=== PATIENT | female | born 1995 | race Caucasian/White ===

== ENCOUNTER 2023-01-22 23:00 | Inpatient (IN) | payer OTHER ==
[2023-01-22] MEDS ORDERED: ZOLPIDEM TARTRATE 5 MG TABLET PO ONE (23:30)
[2023-01-22] MEDS: ELECTROLYTE-148 SOLN 1,000 ML IV SCH (23:30)
[2023-01-22] MEDS ORDERED: PROMETHAZINE HCL 25 MG/1 ML VIAL IVPB ONE (23:30)
[2023-01-22] MEDS ORDERED: BUTORPHANOL TARTRATE 2 MG/ML VIAL IVPB ONE (23:30)
[2023-01-23 00:15] LABS: EOS % 0.5 % (0-4.5); HEMATOCRIT 30.2 % (32.4-45.2); HEMOGLOBIN 10.2 GM/dL (10.7-15.3); LYMPH % 13.9 % (8-40); MCH 27.4 pg (25.7-33.7); MCHC 33.9 g/dl (32.0-36.0); MEAN CELL VOLUME 80.7 fl (80-96); MEAN PLT VOLUME 7.1 fl (7.5-11.1); MONO % 8.4 % (3.8-10.2); NEUT % 77.2 % (42.8-82.8); PLATELET COUNT 406 10^3/uL (134-434); RBC 3.75 M/mm3 (3.60-5.2); RDW 13.9 % (11.6-15.6); WHITE BLOOD COUNT 12.5 K/mm3 (4.0-10.0)
[2023-01-23 00:30] LABS: ACTIVATED PTT 26.7 SECONDS (25.2-36.5); INR 1.05 (0.83-1.09); PROTHROMBIN TIME (PATIENT) 12.2 SEC (9.7-13.0)
[2023-01-23 00:37] LABS: BLOOD UREA NITROGEN 7.2 mg/dL (7-18); CALCIUM 8.9 mg/dL (8.5-10.1)
[2023-01-23 00:41] VITALS: BMI 27.8
[2023-01-23 00:41] LABS: CREATININE 0.5 mg/dL (0.55-1.3)
[2023-01-23] MEDS ORDERED: BUTORPHANOL TARTRATE 2 MG/ML VIAL ONE (01:27)
[2023-01-23] MEDS ORDERED: PROMETHAZINE HCL 25 MG/1 ML VIAL ONE (01:27)
[2023-01-23 01:32] LABS: HIV INTERPRETATION NEGATIVE (NEGATIVE)
[2023-01-23] MEDS ORDERED: FENTANYL/BUPIVACAINE/NS/PF - PCEA - 50 ML DISP.SYRIN EP ONE ×2 (07:27→12:58)
[2023-01-23] MEDS: ELECTROLYTE-148 SOLN 1,000 ML IV SCH (07:35)
[2023-01-23] MEDS ORDERED: NALOXONE HCL 0.4 MG/ML VIAL IVPUSH PRN (07:48)
[2023-01-23] MEDS ORDERED: BUPIVACAINE HCL/PF 0.25% (2.5MG/ML) 10 ML VIAL ONE (07:50)
[2023-01-23] MEDS: FENTANYL/BUPIVACAINE/NS/PF - PCEA - 50 ML DISP.SYRIN EP SCH ×2 (08:10→13:01)
[2023-01-23] MEDS ORDERED: OXYTOCIN 30 UNITS in 0.9% NS 30 UNIT/500 ML INFUS.BAG IVPB ONE (08:52)
[2023-01-23] MEDS ORDERED: OXYTOCIN 30 UNITS in 0.9% NS 30 UNIT/500 ML INFUS.BAG IVPB SCH (09:15)
[2023-01-23] MEDS ORDERED: ELECTROLYTE-148 SOLN 1,000 ML IV SCH (09:15)
[2023-01-23] MEDS ORDERED: OXYTOCIN 20 UNITS in 0.9% NS 20 UNIT/1,000 ML INFUS.BAG IV ONE (15:55)
[2023-01-23] MEDS ORDERED: BISACODYL 10 MG SUPP.RECT RC PRN (18:03)
[2023-01-23] MEDS ORDERED: BENZOCAINE 28 GM HEMORRHOIDAL OINTMENT TP PRN (18:03)
[2023-01-23] MEDS ORDERED: ACETAMINOPHEN 325 MG TABLET (FP) PO PRN (18:03)
[2023-01-23] MEDS ORDERED: WITCH HAZEL 50% (TUCKS) 40 PAD/JAR PAD TP PRN (18:03)
[2023-01-23] MEDS ORDERED: METHYLERGONOVINE MALEATE 0.2 MG/1 ML AMP IM PRN (18:03)
[2023-01-23] MEDS ORDERED: BENZOCAINE 20% 57 GM BOTTLE TP PRN (18:03)
[2023-01-23] MEDS ORDERED: OXYTOCIN 20 UNITS in 0.9% NS 20 UNIT/1,000 ML INFUS.BAG IV SCH (18:15)
[2023-01-23] MEDS ORDERED: IBUPROFEN 600 MG TABLET (FP) PO ONE (19:39)
[2023-01-23] MEDS: IBUPROFEN 600 MG TABLET (FP) PO PRN (19:51)
[2023-01-24] MEDS: IBUPROFEN 600 MG TABLET (FP) PO PRN ×3 (06:00→16:34)
[2023-01-24 07:10] LABS: BASO % 1.6 % (0-2.0); EOS % 0.7 % (0-4.5); HEMATOCRIT 27.8 % (32.4-45.2); HEMOGLOBIN 9.8 GM/dL (10.7-15.3); MCH 28.4 pg (25.7-33.7); MCHC 35.1 g/dl (32.0-36.0); MEAN CELL VOLUME 80.8 fl (80-96); MEAN PLT VOLUME 7.6 fl (7.5-11.1); MONO % 6.6 % (3.8-10.2); NEUT % 78.1 % (42.8-82.8); PLATELET COUNT 329 10^3/uL (134-434); RBC 3.44 M/mm3 (3.60-5.2); WHITE BLOOD COUNT 12.9 K/mm3 (4.0-10.0)
[2023-01-24] MEDS: PRENATAL VITAMINS W/ FOLIC ACID TABLET (FP) PO SCH (09:13)
[2023-01-24] MEDS ORDERED: SENNOSIDES/DOCUSATE COMBO (SENNA PLUS) TABLET (UD) PO PRN (22:00)
[2023-01-24 22:14] VITALS: PULSE 68
[2023-01-25] MEDS: PRENATAL VITAMINS W/ FOLIC ACID TABLET (FP) PO SCH (09:25)
[2023-01-25] MEDS: IBUPROFEN 600 MG TABLET (FP) PO PRN (09:25)
[2023-01-25 10:23] VITALS: BP 114/72; RESP 18; TEMP 98
== END 2023-01-25 14:40 | disposition home or self-care (01) | DRG 560 ==
LOC: JLDR 23:00 → J3W 01-23 20:03
PROVIDERS: ADMIT Specialist; ATTEND Specialist
PROC: 10E0XZZ Delivery of Products of Conception, External Approach (ICD-10-PCS; principal; 2023-01-23)
DX: O42.02 Full-term premature rupture of membranes, onset of labor within 24 hours of rupture (principal); O69.81X0 Labor and delivery complicated by cord around neck, without compression, not applicable or unspecified; Z3A.38 38 weeks gestation of pregnancy; Z37.0 Single live birth
CPT/HCPCS: 36415; 59409; 80048; 85025; 85461; 85610; 85730; 86780; 86850; 86900; 86901; 86999; 87389; C9803-CS; U0003; U0005

== ENCOUNTER 2024-03-30 16:37 | Emergency (ER) | payer OTHER ==
[2024-03-30 16:45] VITALS: BP 109/75; PULSE 71; RESP 18; TEMP 98; BMI 26.6
[2024-03-30 18:14] LABS: BASO % 0.3 % (0-2.0); EOS % 1.6 % (0-4.5); HEMOGLOBIN 13.2 GM/dL (10.7-15.3); LYMPH % 30.7 % (8-40); MCHC 34.6 g/dl (32.0-36.0); MEAN CELL VOLUME 83.7 fl (80-96); MEAN PLT VOLUME 7.6 fl (7.5-11.1); MONO % 7.6 % (3.8-10.2); NEUT % 59.8 % (42.8-82.8); PLATELET COUNT 394 10^3/uL (134-434); RBC 4.54 M/mm3 (3.60-5.2); RDW 13.8 % (11.6-15.6); WHITE BLOOD COUNT 8.7 K/mm3 (4.0-10.0)
[2024-03-30 19:04] LABS: CALCIUM 8.9 mg/dL (8.5-10.1)
[2024-03-30 19:05] LABS: ALBUMIN 4.1 g/dl (3.4-5.0); BLOOD UREA NITROGEN 9.4 mg/dL (7-18)
[2024-03-30 19:08] LABS: CREATININE 0.6 mg/dL (0.55-1.3); PHOSPHOROUS 3.6 mg/dL (2.5-4.9)
[2024-03-30 19:09] LABS: BILIRUBIN,TOTAL 0.2 mg/dL (0.2-1); TOT PROT 7.6 g/dl (6.4-8.2)
[2024-03-30] MEDS ORDERED: HIV POST EXPOSURE PROPHYLAXIS KIT PO ONE (19:22)
[2024-03-30] MEDS: HIV POST EXPOSURE PROPHYLAXIS KIT NR ONE (19:23)
[2024-03-30 19:59] LABS: HIV INTERPRETATION NEGATIVE (NEGATIVE)
== END 2024-03-30 19:25 | disposition home or self-care (01) ==
LOC: JERFT 16:37
DX: S61.231A Puncture wound without foreign body of left index finger without damage to nail, initial encounter (principal); W46.1XXA Contact with contaminated hypodermic needle, initial encounter
CPT/HCPCS: 36415; 80053; 82465; 82977; 84100; 85025; 86704; 86803; 87340; 87389; 87517; 99283-25